=== PATIENT | female | born 1980 | race Caucasian/White ===

== ENCOUNTER 2017-09-15 15:25 | Emergency (ER) | payer SELFPAY ==
[2017-09-15 15:46] VITALS: BP 153/95
--- NOTE | 2017-09-15 16:52 | ERNOTE ---
Date of Service: 09/15/17 Time Seen by Provider: 09/15/17 16:36 Stated Complaint: BRONCHITIS Presenting Symptoms:: other - Bronchitis and headache Source: patient, RN notes reviewed, past records Exam Limitations: no limitations Immunizations: IMMUNIZATION HX Immunizations Up to Date Yes History of Influenza Vaccine No Allergies/Adverse Reactions: Allergies No Known Allergies Allergy (Unverified 09/15/17 15:47) Home Medications: HOME MEDICATIONS Penicillin V Potassium 500 mg PO BID 09/15/17 [Last Taken Unknown] - History of Present Ilness Narrative: Charlene is a 37-year-old female who presents to the emergency department for bronchitis and a headache. She was diagnosed with bronchitis by her primary care provider approximately a week ago. She was started on an antibiotic but does not feel that she is improving. She also reports that she feels "foggy" and just not right in general. She reports that she is very tired. She states that she is normally "quick" but currently feels slow. She has had brief episodes of pain in her abdomen that radiate to her chest and then into her head. She is concerned that she may be having a heart attack or stroke. She reports that despite her fatigue, she is afraid to go to sleep because she thinks that she is going to . 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 She reports that she has with her life expectancy by 10 years and that she is the only known person with this particular ailment. She is unsure of the name of this disease and has been unable to obtain the records from her childhood medical care. Prior Treatment: Reports: recently seen, treated by physician, currently on antibiotics Review of Systems - Review of Systems Constitutional: Present: recent illness, fatigue, malaise, decreased activity level EYE: Present: no symptoms reported ENT: Absent: nose congestion, sore throat Respiratory: Present: cough. Absent: shortness of breath, wheezing Cardiology: Present: chest pain. Absent: palpitations, syncope Gastrointestinal/Abdominal: Absent: nausea, vomiting, diarrhea, abdominal pain Genitourinary: Absent: dysuria, hematuria Musculoskeletal: Present: muscle pain, joint pain. Absent: joint swelling Skin: Absent: rash, lesions Neurological: Present: headache, dizziness/light-headedness. Absent: weakness, numbness, tingling Endocrine: Present: no symptoms reported Hematologic/Lymphatic: Absent: easy bruising, easy bleeding Psych: Present: anxiety - Patient's Past Medical History Patient History - Medical: Obesity Patient History - Cardiac/Respiratory: Bronchitis Patient History - Cancer: No Hx of Cancer Patient History - Surgical Procedures: No surgical history - Social History Living Situations: home Smoking Status: Current every day smoker Have you smoked in the past 12 months: Yes Alcohol Use: none Drug Use: marijuana - Immunizations Immunizations Up to Date: Yes History of Influenza Vaccine: No Physical Exam - Physical Exam General Appearance: Present: alert, no apparent distress, anxious, obese Head Exam: Present: normal inspection Eye Exam: Normal inspection: bilateral, PERRL: bilateral Ears, Nose, Throat: Present: normal ENT inspection, normal pharynx Neck: Present: normal inspection, nontender, supple Respiratory: Present: no respiratory distress, normal breath sounds, no accessory muscle use, lungs clear Cardiovascular/Chest: Present: regular rate, rhythm, no murmur, normal peripheral pulses Extremity Exam: Present: normal inspection, normal range of motion, no edema Neurological Exam: Present: alert, oriented, normal mood/affect, no motor/ sensory deficits Skin Exam: Present: normal color, warm/dry ED Progress - Results and Orders Patient's Lab Results:: I have reviewed the patient's lab results. - Vital Signs Patient's Vital Signs:: I have reviewed the patient's vital signs. Vital Signs: Vital Signs 09/15/17 15:39 Temperature 36.4 C L Pulse Rate 75 Respiratory 16 Rate Blood Pressure 153/95 O2 Sat by Pulse 98 Oximetry - EKG EKG: NSR EKG read: Reviewed by me - X-Ray X-Ray #1 X-Ray: chest Interpretation: Reviewed by me X-ray Comments: Technique: Frontal and lateral views of the chest are evaluated. (2) views. Comparison: None. Findings: The lungs are symmetrically inflated. No focal consolidation. Mild diffuse prominence of interstitial lung markings with peribronchial thickening. No pneumothorax or pleural effusion. The mediastinum, cardiac silhouette and pulmonary vascularity are within normal limits. No acute osseous findings. Midthoracic endplate degenerative changes noted. IMPRESSION: No focal consolidation. Increased prominence of the interstitial lung markings with peribronchial thickening; correlate for bronchitis. Electronically signed by Adalid Dash D.O.. - Progress/Reassessment Chief Complaint: Upper Respiratory Symptoms Progress:: Unchanged Plan - Plan Plan: Patient reassured regarding normal findings. Informed that her vitamin D was low on her outpatient labs, which may be contributing to her symptoms. She is to contact her PCP's office about this and continue her current antibiotic. Departure Clinical Impression: Bronchitis, acute Qualifiers: Bronchitis organism: unspecified organism Qualified Code(s): J20.9 - Acute bronchitis, unspecified - Departure Disposition: Home Follow Up Needed Condition: Stable Instructions: Form - Excuse from Work, School, or Physical Activity, Acute Bronchitis Additional Instructions: Continue your current medications Stop smoking Contact Sybil's office regarding your Vitamin D level Referrals: Sybil Doll ARNP [Primary Care Provider] -
[2017-09-15 17:21] LABS: Hematocrit 46.4 % (37.0-47.0); Hemoglobin 15.8 gm/dL (12.5-16.0); Mean Cell Volume 86.6 fl (78-100); Mean Corpuscular Hemoglobin 29.5 pg (27-31); Mean Corpuscular Hgb Conc 34.1 g/dl (32-36); Mean Platelet Volume 8.5 fl (6.0-9.5); Neutrophil # 7.2 K/mm3 (1.3-6.0); Neutrophil % 61.9 % (42-75.0); Platelet Count 375 K/mm3 (150-450); Red Blood Count 5.36 M/mm3 (4.2-5.4); White Blood Count 11.5 K/mm3 (4.0-10.5)
[2017-09-15 17:36] LABS: Albumin * 3.5 gm/dl (3.4-5.0); Anion Gap 12.3 mmol/L (6.8-13.8); BUN/Creatinine Ratio 12.1 (9.0-21.6); Bilirubin, Total 0.3 mg/dL (0.0-1.1); Ca. Corrected For Albumin 8.9 mg/dL (8.4-10.2); Calcium * 8.8 mg/dL (7.9-10.9); Carbon Dioxide 29.4 mmol/L (24-32.6); Potassium 3.7 mmol/L (3.4-4.6); Total Protein 7.6 gm/dL (6.2-8.2)
== END 2017-09-15 18:23 | disposition home or self-care (01) ==
LOC: ER 15:25
DX: J20.9 Acute bronchitis, unspecified (principal)